=== PATIENT | male | born 1995 | race African-American/Black ===

== ENCOUNTER 2017-11-17 00:42 | Emergency (ER) | payer OTHER ==
[~2017-11-17] VITALS: Ht 175.3 cm; Wt 70.3 kg
[~2017-11-17 00:42] MED LIST: AMOXICILLIN 50500 M1 PO; APAP/CODEINE ELI5 M1 OR; NOHOMEMEDICATIONS; NORCO 5-325 TA1 EACH PO
[2017-11-17 01:28] LABS: URINE BILIRUBIN NEGATIVE (Negative); URINE BLOOD NEGATIVE (Negative); URINE CLARITY CLEAR; URINE COLOR YELLOW; URINE GLUCOSE-RANDOM* NEGATIVE (Negative); URINE KETONES NEGATIVE (Negative); URINE LEUKOCYTES-REFLEX NEGATIVE (Negative); URINE NITRITE-REFLEX NEGATIVE (Negative); URINE PROTEIN (DIPSTICK) NEGATIVE (Negative); URINE SPECIFIC GRAVITY >= 1.030 (1.005-1.035)
== END 2017-11-17 02:12 | disposition home or self-care (01) ==
LOC: ER 00:42
PROVIDERS: Emergency Medicine
DX: N50.812 Left testicular pain (principal); Z20.2 Contact with and (suspected) exposure to infections with a predominantly sexual mode of transmission

== ENCOUNTER 2017-12-14 10:00 | Emergency (ER) | payer OTHER ==
[~2017-12-14] VITALS: Ht 175.3 cm; Wt 70.8 kg
[2017-12-14 10:18] LABS: URINE CLARITY CLEAR
[2017-12-14 10:27] LABS: URINE COLOR ORANGE
[2017-12-14 10:38] LABS: CASTS None Seen /LPF (None Seen); CRYSTALS None Seen /LPF (None Seen); SQUAMOUS None Seen /LPF (0-3); URINE RBC None Seen /HPF (0-2); URINE WBC 0-5 Rare /HPF (0-5)
[2017-12-14 10:39] LABS: URINE PROTEIN (DIPSTICK) NEGATIVE (Negative)
[2017-12-14 10:41] LABS: URINE BILIRUBIN NEGATIVE (Negative); URINE BLOOD NEGATIVE (Negative); URINE KETONES TRACE (Negative); URINE NITRITE POSITIVE (Negative)
[2017-12-14 10:42] LABS: URINE GLUCOSE-RANDOM* NEGATIVE (Negative); URINE LEUKOCYTES NEGATIVE (Negative); URINE UROBILINOGEN >= 8.0 E.U./dl (0.2-1.0)
[2017-12-14 10:43] LABS: BACTERIA 1-9 Few /HPF (None Seen)
== END 2017-12-14 10:37 | disposition home or self-care (01) ==
LOC: ER 10:00
PROVIDERS: Physician Assistant
DX: Z20.2 Contact with and (suspected) exposure to infections with a predominantly sexual mode of transmission (principal); R30.0 Dysuria

== ENCOUNTER 2019-03-10 13:18 | Emergency (ER) | payer OTHER ==
[~2019-03-10] VITALS: Ht 175.3 cm; Wt 77.1 kg
[2019-03-10 13:18] VITALS: BP 124/71
[2019-03-10 13:38] LABS: URINE BLOOD NEGATIVE (Negative); URINE CLARITY CLEAR; URINE COLOR YELLOW; URINE GLUCOSE-RANDOM* NEGATIVE (Negative); URINE KETONES NEGATIVE (Negative); URINE LEUKOCYTES-REFLEX NEGATIVE (Negative); URINE NITRITE-REFLEX NEGATIVE (Negative); URINE PROTEIN (DIPSTICK) TRACE (Negative)
[2019-03-10 13:40] LABS: ICTOTEST (BILI CONFIRMATORY) Negative (Negative); URINE BILIRUBIN NEGATIVE (Negative)
[2019-03-10] MEDS ORDERED: IBUPROFEN 600600 M1 PO (14:03)
[2019-03-10] MEDS ORDERED: DOXYCYCLINE 10100 MG PO (14:03)
== END 2019-03-10 14:15 | disposition home or self-care (01) ==
LOC: ER 13:18
PROVIDERS: Nurse Practitioner Family
DX: R30.0 Dysuria (principal); N50.89 Other specified disorders of the male genital organs; Z20.2 Contact with and (suspected) exposure to infections with a predominantly sexual mode of transmission

== ENCOUNTER 2020-09-18 13:19 | Emergency (ER) | payer OTHER ==
[~2020-09-18] VITALS: Ht 175.3 cm; Wt 77.1 kg
[~2020-09-18 13:19] MED LIST changes: +DOXYCYCLINE 10100 MG PO; +IBUPROFEN 600600 M1 PO
[2020-09-18 13:36] LABS: URINE BILIRUBIN NEGATIVE (Negative); URINE BLOOD NEGATIVE (Negative); URINE CLARITY CLEAR; URINE COLOR YELLOW; URINE GLUCOSE-RANDOM* NEGATIVE (Negative); URINE KETONES NEGATIVE (Negative); URINE LEUKOCYTES-REFLEX NEGATIVE (Negative); URINE NITRITE-REFLEX NEGATIVE (Negative); URINE PROTEIN (DIPSTICK) NEGATIVE (Negative); URINE SPECIFIC GRAVITY 1.025 (1.005-1.035)
[2020-09-18 15:00] VITALS: BP 132/89
== END 2020-09-18 15:11 | disposition home or self-care (01) ==
LOC: ER 13:19
PROVIDERS: Physician Assistant
DX: N48.89 Other specified disorders of penis (principal); Z79.2 Long term (current) use of antibiotics; Z79.899 Other long term (current) drug therapy